=== PATIENT | female | born 1945 | race Caucasian/White ===

== ENCOUNTER 2022-02-06 15:46 | Inpatient (IN) | payer MEDICARE ==
[~2022-02-06] VITALS: Ht 162.6 cm; Wt 122.7 kg
[2022-02-06] MEDS ORDERED: normal saline 1000ML IV soln IV ONE (16:45)
[2022-02-06] MEDS ORDERED: ATOR10TA70 PO (17:23)
[2022-02-06] MEDS ORDERED: APIX2.5T PO (17:23)
[2022-02-06] MEDS ORDERED: VITA0.4T2 PO (17:24)
[2022-02-06 17:25] LABS: BASOPHILS # (AUTO) 0.1 X10'3 (0-0.2); BASOPHILS % (AUTO) 0.4 % (0-1); EOSINOPHILS % (AUTO) 0.1 % (0-6); HEMATOCRIT 26.1 % (35.0-45.0); HEMOGLOBIN 8.7 g/dl (12.0-16.0); LYMPHOCYTES # (AUTO) 1.5 X10'3 (1.1-4.8); LYMPHOCYTES % (AUTO) 9.6 % (21-51); MEAN CORPUSCULAR HGB CONC 33.4 g/dL (33.0-36.5); MEAN CORPUSCULAR VOLUME 104.6 FL (78-98); MEAN PLATELET VOLUME 8.1 FL (7.4-10.4); MONOCYTES # (AUTO) 1.1 X10'3 (0-0.9); MONOCYTES % (AUTO) 7.3 % (2-12); NEUTROPHILS # (AUTO) 12.8 X10'3 (1.8-7.7); NEUTROPHILS % (AUTO) 82.6 % (42-75); PLATELET COUNT 123 X10'3 (140-440); RED CELL DISTRIBUTION WIDTH 16.2 % (11.5-14.5); WHITE BLOOD COUNT 15.4 X10'3 (4.5-11.0)
[2022-02-06] MEDS ORDERED: BUME1TAB8 PO ×2 (17:25→17:27)
[2022-02-06] MEDS ORDERED: CHLO118L3 TOP (17:28)
[2022-02-06] MEDS ORDERED: CLOP75TA33 PO (17:30)
[2022-02-06] MEDS ORDERED: CYAN-51 PO (17:32)
[2022-02-06] MEDS ORDERED: DICL20GE TOP (17:33)
[2022-02-06] MEDS ORDERED: DOCU100C40 PO (17:35)
[2022-02-06] MEDS ORDERED: FOLI1TAB27 PO (17:36)
[2022-02-06] MEDS ORDERED: ESCI-8 PO (17:36)
[2022-02-06] MEDS ORDERED: [UNRECOGNIZED DRUG - OTHER] TOP (17:37)
[2022-02-06] MEDS ORDERED: LACT10SO57 PO (17:39)
[2022-02-06 17:41] LABS: LACTIC SEPSIS 3.4 MMOL/L (0.4-2.0)
[2022-02-06 17:47] LABS: ALANINE AMINOTRANSFERASE 88 U/L (12-78); ALBUMIN 2.1 G/DL (3.4-5.0); ALBUMIN/GLOBULIN RATIO 0.5 (1.1-1.5); ALKALINE PHOSPHATASE 201 IU/L (46-116); ANION GAP 7 (8-16); ASPARTATE AMINO TRANSFERASE 206 U/L (10-37); BILIRUBIN,TOTAL 3.3 MG/DL (0.1-1.0); BLOOD UREA NITROGEN 14 MG/DL (7-18); BUN/CREATININE RATIO 5.5 (6.6-38.0); CALCIUM 8.6 MG/DL (8.5-10.1); CHLORIDE 100 MMOL/L (99-107); CREATININE 2.55 MG/DL (0.40-0.90); GLUCOSE 133 MG/DL (70-104); MAGNESIUM 1.9 MG/DL (1.5-2.4); POTASSIUM 3.7 MMOL/L (3.5-5.1); SODIUM 138 MMOL/L (135-145); TOTAL CARBON DIOXIDE 31.1 MMOL/L (24-32); TOTAL PROTEIN 6.5 G/DL (6.4-8.2); eGFR 18 ML/MIN
[2022-02-06] MEDS ORDERED: CefTRIAXone 2gm/D5W 50ml BAG 50 ML IV ONE (17:55)
[2022-02-06] MEDS ORDERED: LEVO75TA7 PO (18:48)
[2022-02-06 18:54] LABS: CLARITY,URINE CLOUDY (Clear); GLUCOSE, URINE NEGATIVE (Neg); KETONES,URINE 15 mg/dl (Neg); LEUKOCYTE ESTERASE ,URINE MODERATE (Neg); NITRITES, URINE POSITIVE (Neg); OCCULT BLOOD,URINE MODERATE (Neg); PROTEIN,URINE TRACE mg/dl (Neg); UROBILINOGEN,URINE 0.2 E.U/dL (0.2-1.0)
[2022-02-06] MEDS ORDERED: LIDO1ADH78 TOP (18:54)
[2022-02-06 18:55] LABS: COLOR,URINE DARK YELLOW (Yellow); UA COLLECTION TYPE STRAIGHT CATH
[2022-02-06] MEDS ORDERED: MELA3TAB70 PO (18:55)
[2022-02-06] MEDS ORDERED: MIDO5TAB4 PO (18:56)
[2022-02-06] MEDS ORDERED: MOME13HF2 INH (18:57)
[2022-02-06] MEDS ORDERED: ALBU2.5V13 NEB (18:59)
[2022-02-06] MEDS ORDERED: ACET325T58 PO (18:59)
[2022-02-06] MEDS ORDERED: BISA10SU62 RC (19:00)
[2022-02-06] MEDS ORDERED: CALC500T11 PO (19:12)
[2022-02-06] MEDS ORDERED: CHOL1POW2 PO (19:13)
[2022-02-06] MEDS ORDERED: LORA-269 PO (19:16)
[2022-02-06] MEDS ORDERED: POLY17PO59 PO (19:18)
[2022-02-06] MEDS ORDERED: ONDA4TAB12 PO (19:18)
[2022-02-06] MEDS ORDERED: TRAM50TA2 PO ×2 (19:19→19:20)
[2022-02-06 19:24] LABS: BACTERIA,URINE 4+ /HPF (Neg); RBC,URINE 20-50 /HPF (0-2); SQUAMOUS EPITHELIAL CELL,UR FEW /LPF (FEW); WBC CLUMPS,URINE MODERATE /HPF (NEGATIVE)
[2022-02-06] MEDS ORDERED: normal saline 1000ML IV soln IVB ONE (19:25)
[2022-02-06] MEDS ORDERED: PRED20TA PO (19:51)
[2022-02-06] MEDS ORDERED: SENN-263 PO (19:52)
[2022-02-06] MEDS ORDERED: THIA50TA10 PO (19:53)
[2022-02-06] MEDS ORDERED: DIPH50CA39 PO (19:55)
[2022-02-06] MEDS ORDERED: potassium Cl 40MEQ/1/2NS 520ml 520 ML IV PRN (21:10)
[2022-02-06] MEDS ORDERED: magnesium 4gm in 100ml NS 100 ML IV PRN (21:10)
[2022-02-06] MEDS ORDERED: magnesium Cl slow-release 64mg tablet PO PRN (21:10)
[2022-02-06] MEDS ORDERED: acetaminophen 325mg tablet PO PRN (21:10)
[2022-02-06] MEDS ORDERED: potassium Cl 20 mEq SR tablet PO PRN ×2 (21:10)
[2022-02-06] MEDS ORDERED: ondansetron/PF 4mg/2ml inj IV PRN (21:10)
--- NOTE | 2022-02-06 22:58 | NUR ---
PLACED PT IN HOSPITAL BED AND PLACED PILLOW UNDERNEATH PT RIGHT SIDE TO OFFLOAD WEIGHT FROM [facility]
[2022-02-06] MEDS: acetaminophen 325mg tablet PO PRN (23:02)
[2022-02-06] MEDS: normal saline 1000ml 1,000 ML IV SCH (23:08)
--- NOTE | 2022-02-07 02:20 | NUR ---
Repositioned pt onto left side for off loading pressure
[2022-02-07 02:48] LABS: BASOPHILS % (AUTO) 0.3 % (0-1); EOSINOPHILS % (AUTO) 0.2 % (0-6); HEMATOCRIT 24.1 % (35.0-45.0); HEMOGLOBIN 8.1 g/dl (12.0-16.0); LYMPHOCYTES # (AUTO) 1.6 X10'3 (1.1-4.8); LYMPHOCYTES % (AUTO) 12.6 % (21-51); MEAN CORPUSCULAR HEMOGLOBIN 35.1 PG (27.0-31.0); MEAN CORPUSCULAR HGB CONC 33.6 g/dL (33.0-36.5); MEAN CORPUSCULAR VOLUME 104.5 FL (78-98); MEAN PLATELET VOLUME 7.7 FL (7.4-10.4); MONOCYTES # (AUTO) 1.1 X10'3 (0-0.9); MONOCYTES % (AUTO) 8.1 % (2-12); NEUTROPHILS # (AUTO) 10.1 X10'3 (1.8-7.7); NEUTROPHILS % (AUTO) 78.8 % (42-75); PLATELET COUNT 92 X10'3 (140-440); RED BLOOD COUNT 2.31 X10'6 (4.20-5.60); RED CELL DISTRIBUTION WIDTH 16.2 % (11.5-14.5); WHITE BLOOD COUNT 12.9 X10'3 (4.5-11.0)
[2022-02-07 03:30] LABS: ALANINE AMINOTRANSFERASE 83 U/L (12-78); ALBUMIN 1.9 G/DL (3.4-5.0); ALBUMIN/GLOBULIN RATIO 0.5 (1.1-1.5); ALKALINE PHOSPHATASE 171 IU/L (46-116); ANION GAP 6 (8-16); ASPARTATE AMINO TRANSFERASE 208 U/L (10-37); BILIRUBIN,TOTAL 2.2 MG/DL (0.1-1.0); BLOOD UREA NITROGEN 16 MG/DL (7-18); BUN/CREATININE RATIO 5.8 (6.6-38.0); CALCIUM 8.1 MG/DL (8.5-10.1); CHLORIDE 103 MMOL/L (99-107); CREATININE 2.77 MG/DL (0.40-0.90); GLUCOSE 88 MG/DL (70-104); POTASSIUM 3.7 MMOL/L (3.5-5.1); SODIUM 140 MMOL/L (135-145); TOTAL CARBON DIOXIDE 30.7 MMOL/L (24-32); TOTAL PROTEIN 5.8 G/DL (6.4-8.2); eGFR 17 ML/MIN
[2022-02-07 04:04] LABS: PLATELET ESTIMATE DECREASED
[2022-02-07 04:05] LABS: ANISOCYTOSIS 1+
[2022-02-07 04:06] LABS: HYPOCHROMASIA 1+; POLYCHROMASIA 1+; TARGET CELLS FEW
--- NOTE | 2022-02-07 06:55 | NUR ---
Pt in room resting well, Pt states that jessica wants something to drink and eat. Pt still is confused, VS are stable and no distress noted at this time.
[2022-02-07] MEDS: K and/or MAG REPLACEMENT MC SCH ×2 (08:28→20:00)
[2022-02-07] MEDS: heparin, porcine 5000 units/ml vial SQ SCH ×2 (08:40→20:51)
[2022-02-07] MEDS: CefTRIAXone 2gm/D5W 50ml BAG 50 ML IV SCH (08:40)
[2022-02-07] MEDS: normal saline 1000ml 1,000 ML IV SCH (10:04)
[2022-02-07] MEDS ORDERED: PERFLUTREN PROTEIN-A MICROSPHR (Optison) 0.22 MG/ML 3ML VIAL IV ONE (11:40)
[2022-02-07] MEDS ORDERED: PERFLUTREN PROTEIN-A MICROSPHR (Optison) 0.22 MG/ML 3ML VIAL IV PRN (12:35)
[2022-02-07 18:00] VITALS: BP 103/35
--- NOTE | 2022-02-07 18:00 | NUR ---
Patient in room PCU 3019. I have received report from [place] RN and had the opportunity to ask questions and assume patient care.
[2022-02-07 22:00] VITALS: BP 105/48
[2022-02-08 02:00] VITALS: BP 108/51
[2022-02-08] MEDS: acetaminophen 325mg tablet PO PRN ×2 (04:12→16:36)
[2022-02-08 06:34] LABS: BASOPHILS # (AUTO) 0.1 X10'3 (0-0.2); BASOPHILS % (AUTO) 0.8 % (0-1); EOSINOPHILS # (AUTO) 0.1 X10'3 (0-0.9); EOSINOPHILS % (AUTO) 0.7 % (0-6); HEMATOCRIT 24.7 % (35.0-45.0); HEMOGLOBIN 8.1 g/dl (12.0-16.0); LYMPHOCYTES # (AUTO) 1.4 X10'3 (1.1-4.8); LYMPHOCYTES % (AUTO) 12.7 % (21-51); MEAN CORPUSCULAR HEMOGLOBIN 34.4 PG (27.0-31.0); MEAN CORPUSCULAR HGB CONC 32.6 g/dL (33.0-36.5); MEAN CORPUSCULAR VOLUME 105.6 FL (78-98); MEAN PLATELET VOLUME 7.8 FL (7.4-10.4); MONOCYTES # (AUTO) 0.8 X10'3 (0-0.9); MONOCYTES % (AUTO) 7.4 % (2-12); NEUTROPHILS # (AUTO) 8.8 X10'3 (1.8-7.7); NEUTROPHILS % (AUTO) 78.4 % (42-75); PLATELET COUNT 87 X10'3 (140-440); RED BLOOD COUNT 2.34 X10'6 (4.20-5.60); RED CELL DISTRIBUTION WIDTH 16.1 % (11.5-14.5); WHITE BLOOD COUNT 11.3 X10'3 (4.5-11.0)
[2022-02-08] MEDS: normal saline 1000ml 1,000 ML IV SCH (07:00)
--- NOTE | 2022-02-08 07:13 | NUR ---
Problems reprioritized. Patient report given, questions answered & plan of care reviewed with Allegra ARTEAGA.
[2022-02-08 07:20] LABS: ALANINE AMINOTRANSFERASE 83 U/L (12-78); ALBUMIN 1.7 G/DL (3.4-5.0); ALBUMIN/GLOBULIN RATIO 0.4 (1.1-1.5); ALKALINE PHOSPHATASE 188 IU/L (46-116); ANION GAP 10 (8-16); ASPARTATE AMINO TRANSFERASE 188 U/L (10-37); BILIRUBIN,TOTAL 1.5 MG/DL (0.1-1.0); BLOOD UREA NITROGEN 31 MG/DL (7-18); BUN/CREATININE RATIO 7.9 (6.6-38.0); CALCIUM 8.4 MG/DL (8.5-10.1); CHLORIDE 102 MMOL/L (99-107); CREATININE 3.91 MG/DL (0.40-0.90); GLUCOSE 73 MG/DL (70-104); POTASSIUM 4.1 MMOL/L (3.5-5.1); SODIUM 135 MMOL/L (135-145); TOTAL CARBON DIOXIDE 23.5 MMOL/L (24-32); TOTAL PROTEIN 5.8 G/DL (6.4-8.2); eGFR 11 ML/MIN
[2022-02-08] MEDS: K and/or MAG REPLACEMENT MC SCH ×2 (08:00→20:00)
[2022-02-08] MEDS: heparin, porcine 5000 units/ml vial SQ SCH ×2 (08:00→20:00)
--- NOTE | 2022-02-08 08:31 | NUR ---
Cosme urias: Noted pt w/ bridgett 9, has multiple juanita dressings to BLE and L hand per RN skin assessment. WOC pending. Addendum: 02/08/22 at [address] Amended: Links added.
[2022-02-08] MEDS: CefTRIAXone 2gm/D5W 50ml BAG 50 ML IV SCH (09:45)
[2022-02-08] MEDS ORDERED: calcium carbonate 500mg chew tablet PO PRN (11:40)
[2022-02-08] MEDS ORDERED: LORazepam 1 MG tablet PO PRN (11:40)
[2022-02-08] MEDS: LIDOcaine 5% patch TP SCH (11:58)
[2022-02-08] MEDS: midodrine 5mg tablet PO SCH ×2 (13:47→16:00)
[2022-02-08] MEDS: levoTHYROXINE 75mcg tablet PO SCH (13:47)
[2022-02-08] MEDS: atorvastatin 10mg tablet PO SCH (13:48)
[2022-02-08] MEDS: albuterol 2.5 MG/3 ML nebule NEB SCH ×2 (14:38→20:29)
[2022-02-08 15:00] VITALS: BP 119/58
[2022-02-08 18:00] VITALS: BP 129/35
--- NOTE | 2022-02-08 18:00 | NUR ---
Patient in room PCU 3019. I have received report from Allegra ARTEAGA and had the opportunity to ask questions and assume patient care.
[2022-02-08] MEDS: budesonide 0.5mg/2ml UD nebule IH SCH (20:29)
[2022-02-08] MEDS ORDERED: ESCITALOPRAM OXALATE 5 MG TABLET PO SCH (21:00)
[2022-02-08] MEDS ORDERED: MESSAGE TO NURSING IM SCH (21:00)
[2022-02-08] MEDS ORDERED: Melatonin 3mg tablet PO SCH (21:00)
[2022-02-08 22:00] VITALS: BP 125/50
[2022-02-09 02:00] VITALS: BP 118/52
[2022-02-09] MEDS: acetaminophen 325mg tablet PO PRN (04:34)
[2022-02-09] MEDS: normal saline 1000ml 1,000 ML IV SCH (04:53)
[2022-02-09 07:01] LABS: BASOPHILS # (AUTO) 0.1 X10'3 (0-0.2); BASOPHILS % (AUTO) 0.7 % (0-1); EOSINOPHILS # (AUTO) 0.2 X10'3 (0-0.9); EOSINOPHILS % (AUTO) 1.9 % (0-6); HEMOGLOBIN 8.8 g/dl (12.0-16.0); LYMPHOCYTES # (AUTO) 1.6 X10'3 (1.1-4.8); LYMPHOCYTES % (AUTO) 13.5 % (21-51); MEAN CORPUSCULAR HEMOGLOBIN 35.1 PG (27.0-31.0); MEAN CORPUSCULAR HGB CONC 33.7 g/dL (33.0-36.5); MEAN CORPUSCULAR VOLUME 103.9 FL (78-98); MEAN PLATELET VOLUME 7.3 FL (7.4-10.4); MONOCYTES # (AUTO) 1.1 X10'3 (0-0.9); MONOCYTES % (AUTO) 8.6 % (2-12); NEUTROPHILS # (AUTO) 9.2 X10'3 (1.8-7.7); NEUTROPHILS % (AUTO) 75.3 % (42-75); PLATELET COUNT 86 X10'3 (140-440); RED CELL DISTRIBUTION WIDTH 15.8 % (11.5-14.5); WHITE BLOOD COUNT 12.2 X10'3 (4.5-11.0)
--- NOTE | 2022-02-09 07:17 | NUR ---
Problems reprioritized. Patient report given, questions answered & plan of care reviewed with Allegra ARTEAGA.
[2022-02-09 07:22] LABS: ALANINE AMINOTRANSFERASE 85 U/L (12-78); ALBUMIN 1.8 G/DL (3.4-5.0); ALBUMIN/GLOBULIN RATIO 0.4 (1.1-1.5); ALKALINE PHOSPHATASE 197 IU/L (46-116); ANION GAP 11 (8-16); ASPARTATE AMINO TRANSFERASE 185 U/L (10-37); BILIRUBIN,TOTAL 1.6 MG/DL (0.1-1.0); BLOOD UREA NITROGEN 39 MG/DL (7-18); BUN/CREATININE RATIO 8.3 (6.6-38.0); CALCIUM 8.4 MG/DL (8.5-10.1); CHLORIDE 100 MMOL/L (99-107); CREATININE 4.68 MG/DL (0.40-0.90); GLUCOSE 82 MG/DL (70-104); POTASSIUM 4.1 MMOL/L (3.5-5.1); SODIUM 134 MMOL/L (135-145); TOTAL CARBON DIOXIDE 23.2 MMOL/L (24-32); eGFR 9 ML/MIN
[2022-02-09 07:36] VITALS: BP 143/44
[2022-02-09] MEDS: budesonide 0.5mg/2ml UD nebule IH SCH (07:51)
[2022-02-09] MEDS: albuterol 2.5 MG/3 ML nebule NEB SCH ×3 (07:51→15:05)
[2022-02-09] MEDS ORDERED: heparin 1,000 units/ml 10ml inj HE ONE ×2 (08:00)
[2022-02-09] MEDS ORDERED: EPOETIN ALFA-EPBX 20,000 UNIT/ML 1 ML MDV IV ONE (08:00)
[2022-02-09] MEDS ORDERED: heparin 1,000unit/ml 10ml vial 10 ML IV ONE (08:00)
[2022-02-09] MEDS: heparin, porcine 5000 units/ml vial SQ SCH (08:00)
[2022-02-09] MEDS: K and/or MAG REPLACEMENT MC SCH (08:00)
[2022-02-09] MEDS ORDERED: normal saline 1000ml 250 ML IV PRN (08:00)
[2022-02-09] MEDS ORDERED: bumetanide 1mg tablet PO SCH (08:00)
[2022-02-09] MEDS ORDERED: clopidogrel 75mg tablet PO SCH (08:00)
[2022-02-09] MEDS ORDERED: cyanocobalamin 500mcg tablet PO SCH (08:00)
[2022-02-09] MEDS: midodrine 5mg tablet PO SCH ×2 (08:40→12:40)
[2022-02-09] MEDS: levoTHYROXINE 75mcg tablet PO SCH (08:41)
[2022-02-09] MEDS: atorvastatin 10mg tablet PO SCH (08:41)
[2022-02-09] MEDS: CefTRIAXone 2gm/D5W 50ml BAG 50 ML IV SCH (08:41)
[2022-02-09] MEDS: LIDOcaine 5% patch TP SCH (08:44)
[2022-02-09 09:54] LABS: AFP,SERUM, TUMOR MARKER 4.5 ng/mL (0.0-9.2); CARCINOEMBRYONIC ANTIGEN 12.7 ng/mL (0.0-4.7)
[2022-02-09] MEDS ORDERED: traMADol 50MG tablet PO PRN (10:55)
[2022-02-09] MEDS ORDERED: CEPH-585 PO (10:57)
[2022-02-09 11:02] VITALS: BP 130/57
--- NOTE | 2022-02-09 16:40 | NUR ---
02/09/22 @ 1015 Wound care consult received for evaluation of sacral and BLE skin breakdown per nursing. Arrived at the room, patient receiving dialysis, unable to assess wounds per HD RN. WOC will continue to follow in an effort to perform skin assessment. 02/09/22 @ 1215 patient expected to be receiving dialysis for at least 4 more hours. WOC continue to follow.
--- NOTE | 2022-02-09 17:23 | NUR ---
Patient stable for transfer per MD, to [facility] for continued care. PIV discontinued, cannula intact. Tele discontinued. All belongings collected by spouse and sent home. PU via [employer] at approx 1616.
[2022-02-10 12:20] LABS: HBSAG SCREEN Negative (Negative); HEP A AB, IGM Negative (Negative)
== END 2022-02-09 16:30 | DRG 871 ==
LOC: ER 15:47 → ED HOLD 21:17 → EDBEDREQ 02-07 12:34 → PCU 3S 02-07 15:25
PROVIDERS: ADMIT Internal Medicine; ATTEND Family Medicine
PROC: 5A1D70Z Performance of Urinary Filtration, Intermittent, Less than 6 Hours Per Day (ICD-10-PCS; principal; 2022-02-09)
DX: A41.9 Sepsis, unspecified organism (principal); G92.9 Unspecified toxic encephalopathy; N18.6 End stage renal disease; N39.0 Urinary tract infection, site not specified; I13.2 Hypertensive heart and chronic kidney disease with heart failure and with stage 5 chronic kidney disease, or end stage renal disease; N17.9 Acute kidney failure, unspecified; Z68.42 Body mass index [BMI] 45.0-49.9, adult; K76.6 Portal hypertension; D64.9 Anemia, unspecified; D69.6 Thrombocytopenia, unspecified; G89.29 Other chronic pain; R74.01 Elevation of levels of liver transaminase levels; D63.8 Anemia in other chronic diseases classified elsewhere; R62.7 Adult failure to thrive; E66.9 Obesity, unspecified; K74.60 Unspecified cirrhosis of liver; R29.6 Repeated falls; R16.1 Splenomegaly, not elsewhere classified; L89.159 Pressure ulcer of sacral region, unspecified stage; I25.10 Atherosclerotic heart disease of native coronary artery without angina pectoris; I48.91 Unspecified atrial fibrillation; I50.9 Heart failure, unspecified; J44.9 Chronic obstructive pulmonary disease, unspecified; R65.20 Severe sepsis without septic shock; Z95.1 Presence of aortocoronary bypass graft; Z99.2 Dependence on renal dialysis; Z88.8 Allergy status to other drugs, medicaments and biological substances; Z88.5 Allergy status to narcotic agent
CPT/HCPCS: 36415; 70450; 71045; 74176; 80053; 80074; 81001; 82103; 82140; 82378; 82948; 83605; 83735; 84145; 84484; 85008; 85025; 87040; 87088; 93308; 94640; 94760; 96361; 96365; 97110; 97161; 97530; 99285; A4353; A4615; A6402; C1758; G0257; G0378; J0696; J1644; J7030; Q4081